=== PATIENT | male | born 1975 | race Caucasian/White ===

== ENCOUNTER → 2017-05-31 | Outpatient (CLI) | payer MEDICAID | LOC: COL.RAD 06:06 | DX: K21.9 Gastro-esophageal reflux disease without esophagitis (principal); R10.9 Unspecified abdominal pain | CPT/HCPCS: A9541 ==

== ENCOUNTER 2017-12-20 08:00 | Outpatient (RCR) | payer MEDICAID | END 2017-12-20 08:45 | disposition home or self-care (01) | LOC: WSPT 08:00 | DX: M54.5 Low back pain (principal) ==

== ENCOUNTER → 2018-02-06 | Outpatient (CLI) | payer MEDICAID | LOC: COL.RAD 16:56 | DX: M48.07 Spinal stenosis, lumbosacral region (principal) ==

== ENCOUNTER 2018-08-23 14:44 | Day surgery (SDC) | payer BC ==
[~2018-08-23] VITALS: Ht 193 cm; Wt 96.2 kg
[~2018-08-23 14:44] MED LIST: ADDERALL5 MG PO; CLEOCIN HCL300 MG PO; MEDROL4 MG; NORCO 325 MG-51 TAB PO; PRIL40 PO; PROSCAR 5MG5 MG PO
[2018-08-23] MEDS ORDERED: CARAFATE 1GM1 G PO (15:06)
[2018-08-23 15:25] VITALS: BP 120/86; PULSE 74; TEMP 97.8
[2018-08-23 16:35] VITALS: BP 114/70; PULSE 81; TEMP 97.8
--- NOTE | 2018-08-23 16:49 | NUR ---
PATIENT RETURNED TO BAY 7 FROM OR VIA CART. RESPIRATIONS EVEN AND UNLABORED. LUNG SOUNDS CLEAR BILATERALLY. REQYESTED JELLO, MUFFIN AND WATER. VS STARTED. CALL LIGHT WITHIN REACH. FAMILY AT BEDSIDE.
[2018-08-23 16:50] VITALS: BP 116/72; PULSE 84
--- NOTE | 2018-08-23 17:00 | NUR ---
PATIENT TOLERATED FOOD AND DRINK. VS STABLE. DENIES PAIN OR NAUSEA. FAMILY AT BEDSIDE. CALL LIGT IN REACH. WILL CONTINUE TO MONITOR.
--- NOTE | 2018-08-23 17:39 | NUR ---
PATIENT DISCHARGED TO HOME AMBULATORY WITH FAMILY. STEADY GAIT. DISCHARGE INSTRUCTIONS GIVEN TO PATIENT AND FAMILY, VERBALIZED UNDERSTANDING.
== END 2018-08-23 17:41 | disposition home or self-care (01) ==
LOC: SDCO 14:44
DX: K21.0 Gastro-esophageal reflux disease with esophagitis (principal); K22.70 Barrett's esophagus without dysplasia; K76.0 Fatty (change of) liver, not elsewhere classified; G47.33 Obstructive sleep apnea (adult) (pediatric); Z87.891 Personal history of nicotine dependence; Z90.49 Acquired absence of other specified parts of digestive tract
CPT/HCPCS: J2704; J7120

== ENCOUNTER 2020-01-17 14:39 | Emergency (ER) | payer BC ==
[~2020-01-17] VITALS: Ht 193 cm; Wt 86.4 kg
[~2020-01-17 14:39] MED LIST changes: +CARAFATE 1GM1 G PO
[2020-01-17 14:44] VITALS: TEMP 97.5
[2020-01-17] MEDS ORDERED: PAMELOR 25MG25 MG PO (14:50)
[2020-01-17 16:00] LABS: BASO % 0.5 % (0.0-2.0); EOS # 0.2 (0.0-0.7); EOS % 3.8 % (0-4.0); GRAN # 2.2 (1.4-6.5); HEMATOCRIT 43.3 % (42.0-52.0); HEMOGLOBIN 14.5 g/dl (13.5-18.0); LYMPH # 1.2 (1.2-3.4); LYMPH % 30.5 % (20.0-51.0); MEAN CELL VOLUME 88 fl (80.0-100.0); MEAN CORPUSCULAR HEMOGLOBIN 29 pg (27.0-31.0); MEAN CORPUSCULAR HGB CONC 34 g/dl (33.0-37.0); MONO # 0.4 (0.1-0.6); MONO % 8.9 % (1.7-9.3); PLATELET COUNT 235 K/mm3 (130-400); RED BLOOD COUNT 4.94 M/mm3 (4.20-5.60); REDCELL DISTRIBUTION WIDTH-CV 11.1 % (11.5-14.5)
[2020-01-17 16:10] LABS: ALANINE AMINOTRANSFERASE 26 U/L (4-49); ALBUMIN 4.5 gm/dL (3.5-5.0); ALKALINE PHOSPHATASE 66 U/L (50-136); ANION GAP 8 mmol/L (7-16); AST,SGOT 29 U/L (15-37); BILIRUBIN,TOTAL 0.4 mg/dL (0.0-1.0); BLOOD UREA NITROGEN 21 mg/dL (9-20); CALCIUM 9.3 mg/dL (8.4-10.2); CARBON DIOXIDE 28 mmol/L (22-30); CHLORIDE 105 mmol/L (98-107); CREATININE, serum 1.06 (0.66-1.25); GLUCOSE 110 mg/dL (74-106); LIPASE 68 U/L (23-300); POTASSIUM 4.5 mmol/L (3.4-5.0); SODIUM 142 mmol/L (137-145); TOTAL PROTEIN 7.3 gm/dL (6.4-8.2)
[2020-01-17 16:11] LABS: C-REACTIVE PROTEIN < 0.5 mg/dL (0.0-0.9)
[2020-01-17 16:21] LABS: TROPONIN-I < 0.012 ng/mL (0.000-0.035)
[2020-01-17 17:10] VITALS: BP 112/68; PULSE 68
== END 2020-01-17 17:10 | disposition home or self-care (01) ==
LOC: COL.ER 14:39
PROVIDERS: Emergency Medicine
DX: R07.89 Other chest pain (principal); F41.9 Anxiety disorder, unspecified; F17.210 Nicotine dependence, cigarettes, uncomplicated; Z90.49 Acquired absence of other specified parts of digestive tract

== ENCOUNTER 2021-11-17 13:30 | Emergency (ER) | payer OTHER, BC ==
[~2021-11-17] VITALS: Ht 193 cm; Wt 93.2 kg
[~2021-11-17 13:30] MED LIST changes: +PAMELOR 25MG25 MG PO
[2021-11-17 13:35] VITALS: TEMP 97.8
[2021-11-17 15:03] VITALS: BP 123/88; PULSE 66
== END 2021-11-17 15:13 | disposition home or self-care (01) ==
LOC: COL.ER 13:30
DX: S06.0X9A Concussion with loss of consciousness of unspecified duration, initial encounter (principal); S16.1XXA Strain of muscle, fascia and tendon at neck level, initial encounter; F17.200 Nicotine dependence, unspecified, uncomplicated; Z28.310 Unvaccinated for COVID-19; V43.52XA Car driver injured in collision with other type car in traffic accident, initial encounter; Y92.410 Unspecified street and highway as the place of occurrence of the external cause